=== PATIENT | male | born 1995 | race American Indian/Alaskan Native ===

== ENCOUNTER 2020-07-19 23:24 | Emergency (ER) | payer MEDICAID ==
[2020-07-20 02:02] VITALS: BP 112/73
--- NOTE | 2020-07-20 02:23 | Emergency Department Report ---
ED Dizziness HPI - General Chief Complaint: Dizziness Stated Complaint: BODY WEAKNESS/DIZZINESS Time Seen by Provider: 07/20/20 02:10 Source: patient Mode of arrival: Ambulatory Limitations: No Limitations - History of Present Illness Initial Comments: Patient is a 25-year-old male who presents emergency room with complaints of dizziness. Patient states at 10 PM he took his lithium and Latuda and became dizzy. Patient states his symptoms have since resolved. Patient states that he is feeling much better. Patient denies muscle pain. Patient denies chest pain. Patient denies shortness of breath. Patient denies syncope. Patient denies visual changes. Patient denies blurry vision. Patient denies headache. Patient states he just wanted to get checked out because he was so dizzy. Patient states while he was waiting in the emergency room waiting room the symptoms have resolved. Patient denies recent travel. Patient denies recent international travel. Patient denies exposure to the novel coronavirus. Patient denies sick contacts. Patient denies fever and chills. Patient denies cough. Patient denies diarrhea. Patient denies coming in contact with anybody with symptoms of the novel coronavirus. MD Complaint: dizziness, lightheadedness -: Sudden Timing: now resolved History of Same: No History of Trauma: No Severity: mild Improves With: rest Worsens With: movement Associated Symptoms: denies: ataxia, chest pain, confusion, cough, diaphoresis, fever/chills, loss of appetite, malaise, rash, seizure, shortness of breath, syncope, weakness - Related Data Home Medications Medication Instructions Recorded Confirmed Last Taken Lurasidone HCl [Latuda] 120 mg PO HS 07/06/18 07/06/18 Unknown Sertraline [Zoloft] 100 mg PO DAILY 07/06/18 07/06/18 07/02/18 busPIRone [Buspar] 15 mg PO BID 07/06/18 07/06/18 07/02/18 cloNIDine [Catapres] 0.1 mg PO BID 07/06/18 07/06/18 07/02/18 Allergies Allergy/AdvReac Type Severity Reaction Status Date / Time No Known Allergies Allergy Unverified 07/06/18 14:27 ED Review of Systems ROS: Stated complaint: BODY WEAKNESS/DIZZINESS Other details as noted in HPI Constitutional: denies: chills, fever Eyes: denies: eye pain, eye discharge, vision change ENT: denies: ear pain, throat pain Respiratory: denies: cough, shortness of breath, wheezing Cardiovascular: denies: chest pain, palpitations Endocrine: no symptoms reported Gastrointestinal: denies: abdominal pain, nausea, diarrhea Genitourinary: denies: urgency, dysuria Musculoskeletal: denies: back pain, joint swelling, arthralgia Skin: denies: rash, lesions Neurological: as per HPI. denies: headache, weakness, paresthesias Psychiatric: denies: anxiety, depression Hematological/Lymphatic: denies: easy bleeding, easy bruising ED Past Medical Hx - Past Medical History Previous Medical History?: Yes Hx Hypertension: Yes ([id number]) Hx Congestive Heart Failure: No Hx Diabetes: No Hx Psychiatric Treatment: Yes (Bipolar, Mood Disorder) Hx Asthma: Yes Hx COPD: No Additional medical history: Rhadomyalysis, Encephalopathy - Surgical History Past Surgical History?: Yes - Family History Family history: no significant - Social History Smoking Status: Current Every Day Smoker Substance Use Type: None - Medications Home Medications: Home Medications Medication Instructions Recorded Confirmed Last Taken Type Lurasidone HCl [Latuda] 120 mg PO HS 07/06/18 07/06/18 Unknown History Sertraline [Zoloft] 100 mg PO DAILY 07/06/18 07/06/18 07/02/18 History busPIRone [Buspar] 15 mg PO BID 07/06/18 07/06/18 07/02/18 History cloNIDine [Catapres] 0.1 mg PO BID 07/06/18 07/06/18 07/02/18 History ED Physical Exam - General Limitations: No Limitations General appearance: alert, in no apparent distress - Head Head exam: Present: atraumatic, normocephalic - Eye Eye exam: Present: normal appearance - ENT ENT exam: Present: mucous membranes moist - Neck Neck exam: Present: normal inspection - Respiratory Respiratory exam: Present: normal lung sounds bilaterally. Absent: respiratory distress, wheezes, rales - Cardiovascular Cardiovascular Exam: Present: regular rate, normal rhythm. Absent: systolic murmur, diastolic murmur, rubs, gallop - GI/Abdominal GI/Abdominal exam: Present: soft, normal bowel sounds. Absent: distended, tenderness, guarding - Rectal Rectal exam: Present: deferred - Extremities Exam Extremities exam: Present: normal inspection - Back Exam Back exam: Present: normal inspection. Absent: tenderness, CVA tenderness (R), CVA tenderness (L), muscle spasm, paraspinal tenderness, vertebral tenderness - Neurological Exam Neurological exam: Present: alert, oriented X3 - Psychiatric Psychiatric exam: Present: normal affect, normal mood - Skin Skin exam: Present: warm, dry, intact, normal color. Absent: rash ED Course Vital Signs 07/20/20 07/20/20 01:21 02:01 Temperature 97.8 F Pulse Rate 61 54 L Respiratory 20 16 Rate Blood Pressure 114/54 Blood Pressure 112/73 [Left] O2 Sat by Pulse 96 98 Oximetry - Reevaluation(s) Reevaluation #1: Patient ambulatory in ER. Patient is asymptomatic. Patient tolerated ambulating without symptoms of dizziness or lightheadedness. Patient tolerated p.o. intake. I discussed all results and clinical findings with patient. I discussed plan of care with patient. Patient agrees with plan of care. Patient is stable for discharge. Patient will be discharged home. Patient given discharge instructions. Patient voiced understanding of discharge instructions. 07/20/20 03:08 ED Medical Decision Making - Lab Data Result diagrams: 07/20/20 01:52 07/20/20 01:52 - Medical Decision Making Patient is a 25-year-old male that presents emergency room with complaints of dizziness and lightheadedness. Patient symptoms resolved prior to initial santiago luation in the acute evaluation room. Patient states he took his Latuda and lithium on empty stomach and began having symptoms. Patient states he normally takes with food and does not have any problems taking. Patient states his symptoms resolved. Patient had labs done. Patient's labs are unremarkable. Patient's lithium level is within normal limits. Patient stable discharge. Patient discharged home... - Differential Diagnosis Med reaction, dizziness, lightheadedness, dehydration. Critical care attestation.: If time is entered above; I have spent that time in minutes in the direct care of this critically ill patient, excluding procedure time. ED Disposition Clinical Impression: Dizziness Medication reaction Qualifiers: Encounter type: initial encounter Qualified Code(s): T50.905A - Adverse effect of unspecified drugs, medicaments and biological substances, initial encounter Disposition: DC-01 TO HOME OR SELFCARE Is pt being admited?: No Does the pt Need Aspirin: No Condition: Stable Instructions: Dizziness (ED), Lightheadedness (ED) Additional Instructions: Patient to follow-up with primary care in 2 to 3 days. Patient to take medications with food or as instructed by the pharmacy. Patient to rest. Patient to increase water. . Patient to take Tylenol or ibuprofen as needed for pain. Patient to continue all medications. Patient to return to the ER if condition worsens, changes or new symptoms arise. Referrals: PRIMARY CARE, [Primary Care Provider] - 2-3 Days Time of Disposition: 03:10
[2020-07-20 02:40] LABS: Basophils # (Auto) 0.1 K/mm3 (0.0-0.1); Basophils % (Auto) 0.6 % (0.0-1.8); Eosinophils # (Auto) 0.1 K/mm3 (0.0-0.4); Eosinophils % (Auto) 1.7 % (0.0-4.3); Hematocrit 39.3 % (35.5-45.6); Lymphocytes # (Auto) 3.1 K/mm3 (1.2-5.4); Mean Corpuscular HGB Conc 33 % (32-34); Mean Corpuscular Volume 86 fl (84-94); Monocytes # (Auto) 0.6 K/mm3 (0.0-0.8); Monocytes % (Auto) 6.6 % (0.0-7.3); Platelet Count 379 K/mm3 (140-440); Red Blood Count 4.55 M/mm3 (3.65-5.03); Red Cell Distribution Width 12.8 % (13.2-15.2)
[2020-07-20 02:47] LABS: BUN/Creatinine Ratio 7; Blood Urea Nitrogen 11 mg/dL (9-20); Calcium 9.9 mg/dL (8.4-10.2); Hemolysis Index 19
== END 2020-07-20 03:16 | disposition home or self-care (01) ==
LOC: ED 23:24
DX: R42 Dizziness and giddiness (principal); T50.995A Adverse effect of other drugs, medicaments and biological substances, initial encounter; I10 Essential (primary) hypertension; F31.9 Bipolar disorder, unspecified; J45.909 Unspecified asthma, uncomplicated; F17.200 Nicotine dependence, unspecified, uncomplicated; Z79.899 Other long term (current) drug therapy; Y92.89 Other specified places as the place of occurrence of the external cause
CPT/HCPCS: 36415; 80048; 80178; 85025